=== PATIENT | male | born 1990 | race Caucasian/White ===

== ENCOUNTER 2020-11-19 06:43 | Emergency (ER) | payer SELFPAY ==
[~2020-11-19] VITALS: Ht 182.9 cm; Wt 68.0 kg
[2020-11-19 06:46] VITALS: BP 127/80
[2020-11-19] MEDS ORDERED: IBUP-1953 PO (07:00)
--- NOTE | 2020-11-19 07:00 | NUR ---
seen and examined by .
--- NOTE | 2020-11-19 07:12 | NUR ---
Patient discharged to home in stable condition. Written and verbal after care instructions given. Patient verbalizes understanding of instruction.
== END 2020-11-19 07:12 | disposition home or self-care (01) ==
LOC: ER 06:43
DX: L84 Corns and callosities (principal); F17.200 Nicotine dependence, unspecified, uncomplicated